=== PATIENT | male | born 1990 | race Caucasian/White ===

== ENCOUNTER 2022-12-13 05:43 | Emergency (ER) | payer OTHER ==
[~2022-12-13] VITALS: Ht 190.5 cm; Wt 87.6 kg
[2022-12-13 06:10] VITALS: BP 99/55
[2022-12-13] MEDS ORDERED: TETANUS-DIPTH-ACEL PERTUSSIS 0.5ML SYR Tdap IM ONE (07:15)
== END 2022-12-13 07:22 | disposition home or self-care (01) ==
LOC: ER 05:43
DX: S61.212A Laceration without foreign body of right middle finger without damage to nail, initial encounter (principal); X58.XXXA Exposure to other specified factors, initial encounter; Y93.89 Activity, other specified; Y92.89 Other specified places as the place of occurrence of the external cause; Y99.8 Other external cause status
CPT/HCPCS: 12002; 90471; 90715